=== PATIENT | female | born 1945 | race Caucasian/White ===

== ENCOUNTER 2022-07-13 07:26 | Day surgery (SDC) | payer MEDICARE, OTHER, SELFPAY ==
[2022-07-13] VITALS (24 sets, daily range): BP systolic 85–148; BP diastolic 54–88; PULSE 53–76; RESP 14–18; TEMP 35.7–36.9; O2SAT 83–99; BMI 36.6
[2022-07-13] MEDS: SODIUM CHLORIDE 0.9 % (FLUSH) 10 ML SYRINGE IVF (07:50)
[2022-07-13] MEDS: LACTATED RINGERS 1000 ML 1,000 ML 100 ML IV ×2 (07:52→09:40)
[2022-07-13] MEDS: OXYCODONE (CR) 10 MG TAB.ER.12H PO (08:15)
[2022-07-13] MEDS: ACETAMINOPHEN 500 MG TABLET 1000 MG PO ×2 (08:15→18:14)
[2022-07-13] MEDS: CELECOXIB 200 MG CAPSULE PO ×2 (08:15→21:33)
[2022-07-13] MEDS: MIDAZOLAM HCL 1 MG/ML inj IVP (08:25)
[2022-07-13] MEDS: fentaNYL 100 MCG/2 ML inj IVP (08:25)
--- NOTE | 2022-07-13 08:25 | SUR.PREOP ---
TIME?OUT:?0823 PT/Felton BARKER RN/Franca THAKKAR MDA?VERIFICATION?OF?SURGICAL?SITE,?PROCEDURE,?AND?CONSENT OBTAINED?PRIOR?TO?INVASIVE?PROCEDURE.
--- NOTE | 2022-07-13 08:31 | P.NB_ITS ---
Nerve Block Nerve Block Time Seen by Provider: 08:31 Date Seen: 07/13/22 Type of block requested by surgeon for post-operative analgesia: geniculars Side: right Time out performed: Yes Verification of patient name: Yes Verification of date of : Yes Site marking: site marked Name of person performing procedure: Zheng Continuous monitoring Was continuous monitoring of O2 sat, B/P, cardiac cath technician, recorded every 15 minutes?: Yes Procedure Checklist: sterile prep, needles and gloves Medications given in 5ml increments after negative aspiration: Ropivicaine %: 0.5 mL: 9 Needle gauge: 25 Patient tolerated procedure well: Yes Block Charges Block Charge (with Pro Fee): Genicular Nerve Block Use of Ultrasound Machine for Block: No
--- NOTE | 2022-07-13 08:31 | W.PM.NB ---
Nerve Block Nerve Block Time Seen by Provider: 08:31 Date Seen: 07/13/22 Type of block requested by surgeon for post-operative analgesia: adductor canal Side: right Time out performed: Yes Verification of patient name: Yes Verification of date of : Yes Site marking: site marked Name of person performing procedure: Zheng Continuous monitoring Was continuous monitoring of O2 sat, B/P, cardiac cath technician, recorded every 15 minutes?: Yes Procedure Checklist: sterile prep, needles and gloves Ultrasound guided. Images saved: Yes Medications given in 5ml increments after negative aspiration: Ropivicaine %: 0.5 mL: 20 Needle gauge: 20 Decadron (mg): 10 Precedex (mcg): 25 Patient tolerated procedure well: Yes Additional comments: Needle noted adjacent to nerve Block Charges Block Charge (with Pro Fee): Femoral Nerve Use of Ultrasound Machine for Block: Yes- US Guidance/pain block
[2022-07-13] MEDS: CEFAZOLIN 2 GM INJ IVP (09:10)
--- NOTE | 2022-07-13 10:01 | CRLHL7_ITS ---
For Patients: As a result of the Cures Act, medical imaging exams and procedure reports are released immediately into your electronic medical record. You may view this report before your referring provider. If you have questions, please contact your health care provider. INDICATION: Post operative right total knee arthroplasty TECHNIQUE: Knee radiograph 2 views right COMPARISON: None FINDINGS: Bone: No acute fractures or aggressive bone lesions are identified. Joint: The patient is status post a total knee arthroplasty with patellar resurfacing. No significant knee effusion is seen. Soft tissue: Anterior skin, subcutaneous gas and joint gas are present from recent surgery. No radiopaque foreign bodies are seen. IMPRESSION: 1. There is an unremarkable postoperative appearance of the knee arthroplasty. Dictated by: Adam Villeda MD @ 07/13/2022 14:20:40 (Electronically Signed)
--- NOTE | 2022-07-13 10:02 | PM.ORPRC ---
Procedure Note Date of procedure: 07/13/22 Procedure: SURGEON: Eddie Cowart MD VICE PRESIDENT FOR PHILANTHROPY: MELISSA Harper PREOPERATIVE DIAGNOSIS: Right knee osteoarthritis POSTOPERATIVE DIAGNOSIS: Right knee osteoarthritis NAME OF OPERATION: Right total knee arthroplasty ANESTHESIA: Spinal ESTIMATED BLOOD LOSS: 0 mL COMPLICATIONS: None SPECIMENS: None DRAINS: None PREOPERATIVE ANTIBIOTICS: Ancef 2 grams IMPLANTS: 1. J&J Attune # 4 posterior stabilized femur 2. # 5 fixed-bearing tibia 3. # 4 posterior stabilized, 5 mm fixed-bearing polyethylene 4. 35 patella INDICATIONS: The patient is a 77-year-old female with a longstanding history of severe, unrelenting right knee pain secondary to end-stage (grade IV) right knee osteoarthritis. Despite appropriate nonoperative management, including activity modification, anti-inflammatories, wehd-grl-bthspbx pain medication, bracing, physical therapy, and injections they continue to have pain and disability. Operative intervention was offered. The risks, benefits and expected outcomes were discussed in detail. These included but were not limited to: Infection, bleeding, injury to blood vessel or nerve, venous thromboembolism. All questions were answered to their satisfaction. Use of an assistant professor of dietetics was necessary throughout the case for patient positioning and safety, soft tissue retraction, and closure. PROCEDURE: Spinal anesthesia was administered. The patient was placed supine on the operating table. The assistant professor of dietetics made sure the patient was positioned appropriately. The lower extremity was prepped and draped in the usual sterile fashion. The limb was exsanguinated with the Tato bandage. The pneumatic tourniquet was inflated to 300 mmHg. A standard anterior incision was made with the knee in flexion. Subcutaneous dissection was sharply taken through fascial layer #1. Full-thickness medial and lateral flaps were elevated. The assistant professor of dietetics retracted the soft tissues and protected them throughout the case. A standard medial parapatellar approach was made. The patella was everted. The infrapatellar fat pad was preserved. The menisci and cruciate ligaments were sharply d?brided. Marginal osteophytes were d?brided with the rongeur. The drill was used to penetrate the femoral canal. The canal was aspirated and irrigated with pulse lavage. The intramedullary femoral guide was placed for a 5-degree valgus cut, removing 10 mm off the distal femur. The saw was used to make the cut. Whitesides line and the trans epicondylar axis were marked. The femoral sizing guide was pinned onto the distal femur. Three degrees of external rotation nicely parallels the transepicondylar axis. Pins were placed for posterior referencing. The four-in-one cutting guide was pinned onto the distal femur. The anterior, posterior, and chamfer cuts were made. The assistant professor of dietetics protected the collateral ligaments. The box cutting guide was pinned. The box cuts were made. The boxed trial was placed and was an excellent fit. Drill holes for the lugs were made. Attention was then turned to the proximal tibia. The extramedullary tibial guide was placed for a neutral varus/valgus cut with 5 degrees of posterior slope, removing 1 mm based off the medial tibial surface. The assistant professor of dietetics protected the collateral ligaments and the neurovascular bundle. The saw was used to make the cut. Trial components were placed. The knee was nicely balanced in both flexion and extension. Rotation of the tibial component was matched to the femur in full extension, matched to our tibial cutting pins, and marked with cautery. The trial components were removed. The tray was placed in appropriate rotation, parallel to our tibial cutting pins. It was pinned by the assistant professor of dietetics and the drill and the punch were used. The tray was removed. The punch was used again. We placed a bone plug in the femoral canal. Attention was then turned to the patella. [place] patellar thickness was 22 mm. The lobster claw resection guide was used with the 9.5 mm [place]. The saw was used to make the cut. Drill holes were made by the assistant professor of dietetics. The trial was placed and was an excellent fit. Cancellous surfaces were irrigated with pulse lavage and thoroughly dried by the assistant professor of dietetics. We cemented the tibial component, then the femoral component. A trial spacer was placed. The knee was brought into full extension. We then cemented the patellar component. Excessive cement was removed. The cement was allowed to harden. Any remaining excessive cement was removed with the osteotome. We impacted the 5 mm polyethylene onto the tibial tray. The knee was taken through a range of motion and was found to be nicely balanced in both flexion and extension. The patella tracks centrally. The assistant professor of dietetics did a three minute dilute Betadine solution soak. The assistant professor of dietetics irrigated the wound with 3 liters of normal saline via pulse lavage. The assistant professor of dietetics reapproximated the extensor mechanism with #1 Vicryl in an interrupted dglopl-se-eamcn fashion. The assistant professor of dietetics then ran the extensor mechanism with a #1 PDO Stratafix. The assistant professor of dietetics closed the subcutaneous tissues with a 3-0 Stratafix and the skin with a running 3-0 Stratafix in a subcuticular fashion. Glue was used to seal the skin. The assistant professor of dietetics placed a dry dressing, SHARDA stocking, and Polar Care. Sponge and needle counts were correct x2. The patient tolerated the procedure well. There were no apparent complications. They were carefully transferred to the hospital bed and taken to the postanesthesia care unit in satisfactory condition. PLAN: The patient will be mobilized with physical therapy. Aspirin will be used for DVT prophylaxis. They will be discharged to home once medically appropriate.
--- NOTE | 2022-07-13 10:51 | W.ANESCHARGE ---
Anesthesia Charges Start Date/Time Anesthesia Start Date: 07/13/22 Anesthesia Start Time: 08:53 Stop Date/Time Anesthesia Stop Date: 07/13/22 Anesthesia Stop Time: 10:48 Summary Emergency: No Extremes of Age: Over 72-CPT 86841
--- NOTE | 2022-07-13 10:55 | SUR.OPER ---
PATIENT QUESTIONS ANSWERED SATISFACTORILY PREOPERATIVELY.? PATIENT BROUGHT TO OR #3 PER CART AFTER BLOCK.? Patient positioned supine on OR #3 bed.?The perioperative?team supported arms bilaterally on arm boards.? Final approval of positioning by surgeon.?
--- NOTE | 2022-07-13 11:09 | SUR.PHASEI ---
xray here forap/lat right knee
--- NOTE | 2022-07-13 12:27 | P.IMCN_ITS ---
Date of Consult Patient: Geetha Patient Consult date: 07/13/22 Requesting Physician: Orthopedics Primary Care Provider: Valerie Rivera DO Consult Narrative Reason for consult: Medical management of comorbidities Narrative: Tiara Juarez (Jane) is a 77 year old female who presented to the hospital today for an elective R TKA with Dr. Cowart. Surgery went well without any complications. Patient has a history of osteopenia, osteoarthritis, GERD, essential hypertension, hyperlipidemia, GI disease requiring a low FODMAPS diet, mild anxiety that is well controlled on current medications. She has never had a DVT, but has had superficial thrombophlebitis. She has never had a blood transfusion. No concerns identified on her preoperative H&P, performed last week by her PCP, Dr. Rivera. Zina lives alone in [place], lives in [facility] in [place], [place]. She has 2 adult daughters (one will come and stay with her postoperatively). 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 Never smoker, no ETOH use. Has received 4 COVID vaccines. Review of Systems Status of ROS: Reports: 10 or more systems reviewed and unremarkable except as noted in History and below PFSH PFSH Medical History (Updated 07/13/22 @ 12:33 by Tamara Montero MD) Degenerative disc disease GERD (gastroesophageal reflux disease) Hyperlipidemia Hypertension Osteoarthritis Osteopenia Surgical History (Updated 07/13/22 @ 12:32 by Tamara Montero MD) History of arthroscopy of left shoulder History of section History of total left knee replacement Family History (Updated 06/22/22 @ 08:40 by Sunshine Mane RN) Father Myocardial infarction Mother Alzheimer disease Brother Anxiety Myocardial infarction Sister No problems noted. Social History Smoking Status: Never smoker Do you use any of these nicotine containing products: None How often do you have a drink containing alcohol: monthly or less How many standard drinks containing alcohol do you have on a typical day: 1 or 2 How often do you have six or more drinks on one occasion: Never AUDIT-C Alcohol total score: 1 Non-prescribed substance use: denies use Caffeine: Yes (occ pop, chocolate) Are you using contraception or practicing any form of control: No Meds Home Medications and Allergies Home Medications Medication Instructions Recorded Confirmed Type albuterol sulfate 90 mcg/actuation 2 inh inhalation Q6H PRN 07/13/22 07/13/22 History aerosol inhaler amoxicillin 500 mg capsule 2,000 mg PO PRN 07/13/22 07/13/22 History atorvastatin 10 mg tablet 10 mg PO HS 07/13/22 07/13/22 History biotin 800 mcg tablet 800 mcg PO DAILY 07/13/22 07/13/22 History buspirone 10 mg tablet 10 mg PO TID 07/13/22 07/13/22 History calcium carbonate 200 mg calcium 400 mg PO BID 07/13/22 07/13/22 History (500 mg) chewable tablet (Tums) cholecalciferol (vitamin D3) 10 20 mcg PO DAILY 07/13/22 07/13/22 History mcg (400 unit) capsule famotidine 20 mg tablet 20 mg PO BID 07/13/22 07/13/22 History fluticasone propionate 50 2 spray intranasal DAILY PRN 07/13/22 07/13/22 History mcg/actuation nasal spray,suspension (24 Hour Allergy Relief) glucosamine sulf dipot 2 cap PO DAILY 07/13/22 07/13/22 History chlr,msm,chond 550 mg-C 30 mg-cheri 1 mg capsule (Glucosamine Chondroitin) lorazepam 0.5 mg tablet (Ativan) 0.5 mg PO DAILY PRN 07/13/22 07/13/22 History losartan 50 mg tablet 50 mg PO DAILY 07/13/22 07/13/22 History metoprolol succinate 25 mg 25 mg PO DAILY 07/13/22 07/13/22 History tablet,extended release 24 hr (Toprol XL) minoxidil 5 % topical foam 1 ea topical HS 07/13/22 07/13/22 History (Daylogic Minoxidil) multivitamin (Daily Multi-Vitamin 1 tab PO DAILY 07/13/22 07/13/22 History tablet) pantoprazole 40 mg tablet,delayed 40 mg PO DAILY 07/13/22 07/13/22 History release sertraline 50 mg tablet 50 mg PO DAILY 07/13/22 07/13/22 History simethicone 80 mg chewable tablet 80 mg PO TID PRN 07/13/22 07/13/22 History (Gas Relief 80 (simethicone)) vitamin B complex (B 1 tab PO DAILY 07/13/22 07/13/22 History Complex-Vitamin B12 tablet) Allergies Allergy/AdvReac Type Severity Reaction Status Date / Time erythromycin base Allergy Mild Verified 07/13/22 08:06 spironolactone Allergy Mild Verified 07/13/22 08:06 Sulfa (Sulfonamide Allergy Mild Verified 07/13/22 08:06 Antibiotics) cephalexin Allergy Unknown Verified 07/13/22 08:07 lisinopril Allergy Unknown Verified 07/13/22 08:06 sulfamethoxazole Allergy Unknown Verified 07/13/22 08:06 [From Bactrim] trimethoprim [From Bactrim] Allergy Unknown Verified 07/13/22 08:06 Exam Narrative: Exam Narrative: GEN: Alert and oriented, sitting comfortably in bed and answering questions appropriately HEENT: Normal external ears, EOMIs bilaterally, no scleral icterus CV: RRR, No concerning murmurs, rubs, or gallops R: LCTA bilaterally without concerning wheezing, rales, or rhonchi Ext: wwp, no concerning edema Skin: No concerning skin lesions or rashes on exposed skin Neuro: Nonfocal Psych: Appropriate Const: Vital Signs, click to edit/add: Vital Signs - 24 hr 07/13/22 07:55 07/13/22 08:22 07/13/22 08:25 Temperature 98.1 F Pulse Rate 76 70 66 Pulse Rate [Pulse Oximeter] Respiratory Rate 16 16 14 Blood Pressure 148/88 H 136/62 121/75 Blood Pressure [Ri ght Arm] Pulse Oximetry 94 99 99 Oxygen Delivery Me thod Room Air Nasal Cannula Nasal Cannula Oxygen Flow Rate 2 2 07/13/22 08:45 07/13/22 08:30 07/13/22 10:43 Temperature 97.1 F L Pulse Rate 55 L 63 61 Pulse Rate [Pulse Oximeter] Respiratory Rate 14 14 16 Blood Pressure 97/57 L 120/70 85/55 L Blood Pressure [Ri ght Arm] Pulse Oximetry 97 99 94 Oxygen Delivery Me thod Nasal Cannula Nasal Cannula Room Air Oxygen Flow Rate 2 2 07/13/22 10:50 07/13/22 10:55 07/13/22 11:00 Temperature Pulse Rate 58 L 55 L 53 L Pulse Rate [Pulse Oximeter] Respiratory Rate 16 16 16 Blood Pressure 89/57 L 89/55 L 92/60 Blood Pressure [Ri ght Arm] Pulse Oximetry 94 94 93 Oxygen Delivery Me thod Nasal Cannula Nasal Cannula Nasal Cannula Oxygen Flow Rate 3 3 3 07/13/22 11:05 07/13/22 11:10 07/13/22 11:25 Temperature 97.1 F L 96.2 F L Pulse Rate 53 L 53 L 56 L Pulse Rate [Pulse Oximeter] Respiratory Rate 16 16 16 Blood Pressure 100/62 104/63 Blood Pressure [Ri ght Arm] 107/64 Pulse Oximetry 99 99 Oxygen Delivery Me thod Nasal Cannula Nasal Cannula Room Air Oxygen Flow Rate 3 3 0 07/13/22 11:30 Temperature 96.2 F L Pulse Rate Pulse Rate [Pulse Oximeter] 57 L Respiratory Rate 16 Blood Pressure Blood Pressure [Ri ght Arm] 105/55 L Pulse Oximetry 96 Oxygen Delivery Me thod Room Air Oxygen Flow Rate 0 Assessment and Plan Assessment and plan (1) Status post right knee replacement: Status: Acute (2) Osteoarthritis: Status: Acute Plan - continue home medications for above-mentioned comorbidities - pain control and prophylaxis per Orthopedic Surgery team
[2022-07-13] MEDS: HYDROmorphone 0.5 mg/0.5 ml inj IVP ×3 (12:34→17:15)
[2022-07-13] MEDS: OXYCODONE 5 MG TABLET PO ×3 (12:54→19:08)
--- NOTE | 2022-07-13 13:33 | W.ANESCHARGE ---
Anesthesia Charges Start Date/Time Anesthesia Start Date: 07/13/22 Anesthesia Start Time: 08:53 Stop Date/Time Anesthesia Stop Date: 07/13/22 Anesthesia Stop Time: 10:48 Summary Emergency: No Extremes of Age: Over 72-CPT 50530
[2022-07-13 13:54] LABS: Sodium* 141 mmol/L (135-149)
[2022-07-13] MEDS: BUSPIRONE 10 MG TABLET PO ×2 (14:10→19:15)
[2022-07-13] MEDS: CEFAZOLIN 2 GM in 0.9 % SODIUM CHLORIDE Mini-bag 100 ML IVPB (15:40)
--- NOTE | 2022-07-13 15:55 | PC.NURSE ---
Pt up to floor at 1125, poor pain control. oxy and dilaudid given at soonest available. up in chair with PT, this helped a bit. ICe to back of knee and cryo to front. surgical drsg CDI. 02 order obtained d/t sats dropping to 83% when sleeping. pt denied VINICIUS hx. 02 sats improve when awake. goal to keep above 88%. report given to LEWIS Atkins.
[2022-07-13] MEDS: ASPIRIN 81 MG TABLET EC PO (21:34)
[2022-07-13] MEDS: SENNOSIDES 1 TAB TABLET 2 TAB PO (21:34)
[2022-07-13] MEDS: ATORVASTATIN 10 MG TABLET PO (21:34)
[2022-07-13] MEDS: FAMOTIDINE 20 MG TABLET PO (21:34)
[2022-07-13] MEDS: SIMETHICONE 80 MG TAB.CHEW PO (21:38)
[2022-07-14] MEDS: ACETAMINOPHEN 500 MG TABLET 1000 MG PO ×3 (00:48→12:31)
[2022-07-14] MEDS: HYDROmorphone 0.5 mg/0.5 ml inj IVP (00:48)
[2022-07-14] MEDS: OXYCODONE 5 MG TABLET PO ×6 (01:29→12:32)
[2022-07-14] MEDS: CEFAZOLIN 2 GM in 0.9 % SODIUM CHLORIDE Mini-bag 100 ML IVPB ×2 (01:46→07:41)
[2022-07-14] MEDS: SIMETHICONE 80 MG TAB.CHEW PO (01:50)
--- NOTE | 2022-07-14 02:03 | PC.NURSE ---
Shift Note: Pt a/o and able to verbalize needs. Spo2 desatting to low 80's on RA, pt requiring 1-2 L/O2 via NC to maintain sats 88% or highter. VS otherwise WNL. Afebrile. Surgical dressing to right knee C,D,&I with cryocuff in place. Moves well with SBA. C/o 6/10 pain despite IV pain meds and oral Oxycodone, ice, and repositioning. Pt visibly having difficulty finding a comfortable position in chair and in bed. Frequent repositioning helpful. Simethicone PRN for belching and gas.
[2022-07-14 03:27] VITALS: BP 117/49; PULSE 66; RESP 16; TEMP 36.4; O2SAT 97
[2022-07-14] MEDS: LORazepam 0.5 MG TABLET PO (06:19)
[2022-07-14 06:29] LABS: Basophils Absolute Auto 0.01 K/uL (0.00-0.30); Basophils Percent Auto 0.1 % (0.0-3.0); Hematocrit 33.9 % (33.0-51.0); Hemoglobin* 11.1 gm/dL (12.0-16.0); Immature Granulocytes Abs Auto 0.01 K/uL (0.00-0.30); Lymphocytes Percent Auto 7.3 % (20-44); Mean Corpuscular HGB Conc 33 gm/dL (32-36); Mean Corpuscular Hemoglobin 30 pg (26-34); Mean Corpuscular Volume 91 fL (80-100); Monocytes Percent Auto 9.1 % (0.0-11.0); Neutrophils Percent Auto 83.4 % (42.0-72.0); Platelet Count* 183 K/uL (140-440); Red Blood Count 3.74 m/uL (4.00-5.20); White Blood Count* 10.26 K/uL (4.50-11.00)
[2022-07-14 06:44] LABS: INR 0.99 (0.91-1.10); Prothrombin Time 13.5 Seconds
[2022-07-14 06:46] LABS: Potassium* 4.3 mmol/L (3.6-5.1)
[2022-07-14 06:48] LABS: Creatinine* 0.9 mg/dL (0.5-1.5); Est. Creatinine Clearance* 38.44; Estimated Glomerular Filt Rate 67 ml/min
[2022-07-14 06:49] LABS: Blood Urea Nitrogen* 27 mg/dL (7-30)
[2022-07-14 07:00] VITALS: BP 139/74; PULSE 60; RESP 12; TEMP 36.7; O2SAT 97
--- NOTE | 2022-07-14 07:09 | PC.NURSE ---
Shift Note 03-07: Pt pleasant and cooperative, VSS, afebrile, up with SBA. Pt anxious for discharge and pain control. See eMAR for medication administration.
--- NOTE | 2022-07-14 08:34 | PM.ORPN ---
Subjective Subjective Time Seen by Provider: 07:15 Date Seen: 07/14/22 Principal diagnosis: Status post right total knee arthroplasty Interval history: Tiara is having posterior knee pain this morning. She did not get much sleep last night. Upon discharge her daughter and granddaughter will be assisting her for 2 weeks. Ortho Exam Narrative Exam Narrative: Alert and oriented x3. Patient is in no acute distress. Converses without labored breathing. Hearing is grossly intact. Ambulates with a walker. Examination of the right knee shows ecchymosis is present. Soft tissue edema is present and is mild. Mild effusion. Bilateral calves are soft and nontender. CMS intact right lower extremity Const Vital Signs, click to edit/add: Vital Signs - 24 hr 07/13/22 08:45 07/13/22 10:43 07/13/22 10:50 Temperature 97.1 F L Pulse Rate 55 L 61 58 L Pulse Rate [Pulse Oximeter] Respiratory Rate 14 16 16 Blood Pressure 97/57 L 85/55 L 89/57 L Blood Pressure [Right Arm] Pulse Oximetry 97 94 94 Oxygen Delivery Method Nasal Cannula Room Air Nasal Cannula Oxygen Flow Rate 2 3 07/13/22 10:55 07/13/22 11:00 07/13/22 11:05 Temperature Pulse Rate 55 L 53 L 53 L Pulse Rate [Pulse Oximeter] Respiratory Rate 16 16 16 Blood Pressure 89/55 L 92/60 100/62 Blood Pressure [Right Arm] Pulse Oximetry 94 93 99 Oxygen Delivery Method Nasal Cannula Nasal Cannula Nasal Cannula Oxygen Flow Rate 3 3 3 07/13/22 11:10 07/13/22 11:25 07/13/22 11:30 Temperature 97.1 F L 96.2 F L 96.2 F L Pulse Rate 53 L 56 L Pulse Rate [Pulse Oximeter] 57 L Respiratory Rate 16 16 16 Blood Pressure 104/63 Blood Pressure [Right Arm] 107/64 105/55 L Pulse Oximetry 99 96 Oxygen Delivery Method Nasal Cannula Room Air Room Air Oxygen Flow Rate 3 0 0 07/13/22 15:00 07/13/22 11:45 07/13/22 12:00 Temperature 96.2 F L 96.8 F L Pulse Rate Pulse Rate [Pulse Oximeter] 57 L 53 L Respiratory Rate 16 16 16 Blood Pressure Blood Pressure [Right Arm] 110/68 110/64 Pulse Oximetry 93 90 Oxygen Delivery Method Room Air Room Air Oxygen Flow Rate 0 0 07/13/22 12:15 07/13/22 12:30 07/13/22 13:00 Temperature 96.8 F L 96.8 F L 96.8 F L Pulse Rate Pulse Rate [Pulse Oximeter] 61 61 53 L Respiratory Rate 16 16 16 Blood Pressure Blood Pressure [Right Arm] 120/59 L 112/61 117/72 Pulse Oximetry 96 96 97 Oxygen Delivery Method Room Air Room Air Room Air Oxygen Flow Rate 0 0 0 07/13/22 14:00 07/13/22 15:00 07/13/22 16:00 Temperature 96.8 F L 98.4 F Pulse Rate Pulse Rate [Pulse Oximeter] 58 L 60 71 Respiratory Rate 16 16 16 Blood Pressure Blood Pressure [Right Arm] 112/57 L 134/71 120/70 Pulse Oximetry 83 L 95 95 Oxygen Delivery Method Nasal Cannula Nasal Cannula Nasal Cannula Oxygen Flow Rate 2 0 0 07/13/22 17:00 07/13/22 19:00 07/13/22 23:00 Temperature 98.1 F 97.7 F Pulse Rate Pulse Rate [Pulse Oximeter] 68 62 62 Respiratory Rate 16 18 18 Blood Pressure Blood Pressure [Right Arm] 135/54 L 124/72 Pulse Oximetry 96 94 Oxygen Delivery Method Nasal Cannula Nasal Cannula Oxygen Flow Rate 0 2 07/13/22 23:00 07/14/22 03:27 Temperature 98.4 F 97.6 F Pulse Rate Pulse Rate [Pulse Oximeter] 65 66 Respiratory Rate 18 16 Blood Pressure Blood Pressure [Right Arm] 135/71 117/49 L Pulse Oximetry 98 97 Oxygen Delivery Method Nasal Cannula Room Air Oxygen Flow Rate 1 Documenting provider has reviewed patient's vital signs: yes Assessment and Plan Assessment and plan (1) Status post right knee replacement: Problem details: 07/13/2022 Status: Acute Assessment and Plan: Plan for discharge is today to home if they meet discharge criteria, likely today. DVT prophylaxis includes aspirin 81 mg twice daily x1 month, Gagan stockings x1 month may remove for 1 hr per day, frequent ambulation Remove dressing in 1 week. Observe wound and phone Orthopedics with any questions or concerns Return to clinic in 1 week for a wound check Return to clinic in [address] Cowart Minimize narcotic use. Wean off and discontinue soon as possible. Activities as tolerated. No strenuous activity. Outpatient physical therapy as scheduled. Ice and elevate the operative extremity. No restriction on ice. (2) Osteoarthritis: Status: Acute
[2022-07-14] MEDS: LOSARTAN POTASSIUM 50 MG TABLET PO (09:48)
[2022-07-14] MEDS: SERTRALINE 50 MG TABLET PO (09:48)
[2022-07-14] MEDS: BUSPIRONE 10 MG TABLET PO (09:49)
[2022-07-14] MEDS: OMEPRAZOLE 20 MG CAPSULE DR 40 MG PO (09:49)
[2022-07-14] MEDS: ASPIRIN 81 MG TABLET EC PO (09:49)
[2022-07-14] MEDS: CELECOXIB 200 MG CAPSULE PO (09:50)
[2022-07-14] MEDS: METOPROLOL SUCCINATE (XL) 25 MG TAB PO (09:50)
[2022-07-14] MEDS: SENNOSIDES 1 TAB TABLET 2 TAB PO (09:50)
[2022-07-14] MEDS: FAMOTIDINE 20 MG TABLET PO (09:50)
--- NOTE | 2022-07-14 09:53 | P.DS_ITS ---
DS: Providers Provider Time Seen by Provider: 08:44 Date Seen: 07/14/22 Primary care physician: Valerie Rivera DO Consults: 07/13/22 12:03 Consult to Occupational Therapy [CONS] Routine Comment: Reason(s) for OT Consult:: ADLs Prior to Discharge Any Restrictions?:: See Comment Comment: See nursing activity order for any restrictions. Consult to Physical Therapy [CONS] Routine Comment: Ambulate in the addison today. Reason(s) for PT Consult:: TKA TX Protocol POD#0 Any Restrictions?:: See Comment Comment: See nursing activity order for any restrictions. Consult to Physician [CONS] Routine Comment: Consulting Provider: Hospitalists Has provider been notified: No Consult to Icer Machine Operator [CONS] Routine Comment: Reason for Consult:: Discharge Planning Needs Attending Physician on discharge: Eddie Cowart MD Date of Discharge: 07/14/22 DS: Diagnosis Discharge Diagnosis (1) Status post right knee replacement: Status: Acute Problem details: 07/13/2022 (2) Osteoarthritis: Status: Acute (3) Hyperlipidemia: Status: Chronic (4) Hypertension: Status: Chronic DS: Summary Hospital Course Hospital Course: This is a 77-year-old female with history of hyperlipidemia and hypertension who underwent an elective right total knee arthroplasty. She did well postoperatively and overall had an unremarkable perioperative course. She is discharged home after therapies today in stable condition. Time Spent with Patient Time attestation: Total time spent providing and/or coordinating discharge services: Exam Narrative: Exam Narrative: General: No acute distress. Awake, alert, oriented x3. No pallor. No jaundice. Oropharynx: Clear. Mucous membranes moist. Cardiovascular: Regular rate and rhythm. No murmurs, gallops, or rubs. Respiratory: Clear to auscultation bilaterally. No wheezes or crackles. Abdomen: Bowel sounds present. Soft, nondistended, nontender. Extremities: Right knee bandage is clean, dry, and intact. No pedal edema. Const: Vital Signs, click to edit/add: Vital Signs - 24 hr 07/13/22 10:43 07/13/22 10:50 07/13/22 10:55 Temperature 97.1 F L Pulse Rate 61 58 L 55 L Pulse Rate [Pulse Oximeter] Respiratory Rate 16 16 16 Blood Pressure 85/55 L 89/57 L 89/55 L Blood Pressure [Ri ght Arm] Pulse Oximetry 94 94 94 Oxygen Delivery Me thod Room Air Nasal Cannula Nasal Cannula Oxygen Flow Rate 3 3 07/13/22 11:00 07/13/22 11:05 07/13/22 11:10 Temperature 97.1 F L Pulse Rate 53 L 53 L 53 L Pulse Rate [Pulse Oximeter] Respiratory Rate 16 16 16 Blood Pressure 92/60 100/62 104/63 Blood Pressure [Ri ght Arm] Pulse Oximetry 93 99 99 Oxygen Delivery Me thod Nasal Cannula Nasal Cannula Nasal Cannula Oxygen Flow Rate 3 3 3 07/13/22 11:25 07/13/22 11:30 07/13/22 15:00 Temperature 96.2 F L 96.2 F L Pulse Rate 56 L Pulse Rate [Pulse Oximeter] 57 L Respiratory Rate 16 16 16 Blood Pressure [facility] 107/64 105/55 L Pulse Oximetry 96 Oxygen Delivery Me thod Room Air Room Air Oxygen Flow Rate 0 0 07/13/22 11:45 07/13/22 12:00 07/13/22 12:15 Temperature 96.2 F L 96.8 F L 96.8 F L Pulse Rate Pulse Rate [Pulse Oximeter] 57 L 53 L 61 Respiratory Rate 16 16 16 Blood Pressure Blood Pressure [Ri ght Arm] 110/68 110/64 120/59 L Pulse Oximetry 93 90 96 Oxygen Delivery Me thod Room Air Room Air Room Air Oxygen Flow Rate 0 0 0 07/13/22 12:30 07/13/22 13:00 07/13/22 14:00 Temperature 96.8 F L 96.8 F L Pulse Rate Pulse Rate [Pulse Oximeter] 61 53 L 58 L Respiratory Rate 16 16 16 Blood Pressure Blood Pressure [Ri ght Arm] 112/61 117/72 112/57 L Pulse Oximetry 96 97 83 L Oxygen Delivery Me thod Room Air Room Air Nasal Cannula Oxygen Flow Rate 0 0 2 07/13/22 15:00 07/13/22 16:00 07/13/22 17:00 Temperature 96.8 F L 98.4 F 98.1 F Pulse Rate Pulse Rate [Pulse Oximeter] 60 71 68 Respiratory Rate 16 16 16 Blood Pressure Blood Pressure [Ri ght Arm] 134/71 120/70 135/54 L Pulse Oximetry 95 95 96 Oxygen Delivery Me thod Nasal Cannula Nasal Cannula Nasal Cannula Oxygen Flow Rate 0 0 0 07/13/22 19:00 07/13/22 23:00 07/13/22 23:00 Temperature 97.7 F 98.4 F Pulse Rate Pulse Rate [Pulse Oximeter] 62 62 65 Respiratory Rate 18 18 18 Blood Pressure Blood Pressure [Ri t Arm] 124/72 135/71 Pulse Oximetry 94 98 Oxygen Delivery Me thod Nasal Cannula Nasal Cannula Oxygen Flow Rate 2 1 07/14/22 03:27 Temperature 97.6 F Pulse Rate Pulse Rate [Pulse Oximeter] 66 Respiratory Rate 16 Blood Pressure [facility] 117/49 L Pulse Oximetry 97 Oxygen Delivery Me thod Room Air Oxygen Flow Rate DS: Data Data Completed and Pending Completed studies during hospitalization: Ordering Physician: Eddie Cowart M.D. Date of Service: 07/13/22 Procedure(s): XR knee RT 2V Accession Number(s): [id number] cc: Valerie Rivera DO; Eddie Cowart M.D.~ For Patients: As a result of the Cures Act, medical imaging exams and procedure reports are released immediately into your electronic medical record. You may view this report before your referring provider. If you have questions, please contact your health care provider. INDICATION: Post operative right total knee arthroplasty TECHNIQUE: Knee radiograph 2 views right COMPARISON: None FINDINGS: Bone: No acute fractures or aggressive bone lesions are identified. Joint: The patient is status post a total knee arthroplasty with patellar resurfacing. No significant knee effusion is seen. Soft tissue: Anterior skin, subcutaneous gas and joint gas are present from recent surgery. No radiopaque foreign bodies are seen. IMPRESSION: 1. There is an unremarkable postoperative appearance of the knee arthroplasty. Dictated by: Adam Villeda MD @ 07/13/2022 14:20:40 (Electronically Signed) Labs on day of discharge: Labs from last 24 hours 07/14/22 07/14/22 07/14/22 05:52 05:52 05:52 WBC 10.26 RBC 3.74 L Hgb 11.1 L Hct 33.9 MCV 91 MCH 30 MCHC 33 RDW Coeff of Libra 13.0 Plt Count 183 Neut % (Auto) 83.4 H Lymph % (Auto) 7.3 L [place] % (Auto) 9.1 Eos % (Auto) 0.0 Baso % (Auto) 0.1 Neut # (Auto) 8.60 H Lymph # (Auto) 0.70 L [place] # (Auto) 0.90 Eos # (Auto) 0.00 Baso # (Auto) 0.01 Abs Immat Gran (auto) 0.01 INR 0.99 Sodium Potassium 4.3 BUN 27 Creatinine 0.9 Estimated Creat Clear 38.44 Estimated GFR 67 07/13/22 13:31 WBC RBC Hgb Hct MCV MCH MCHC RDW Coeff of Libra Plt Count Neut % (Auto) Lymph % (Auto) [place] % (Auto) Eos % (Auto) Baso % (Auto) Neut # (Auto) Lymph # (Auto) [place] # (Auto) Eos # (Auto) Baso # (Auto) Abs Immat Gran (auto) INR Sodium 141 Potassium BUN Creatinine Estimated Creat Clear Estimated GFR Discharge Plan Discharge Disposition: Home, Self-Care Discharging Surgeon: Eddie Cowart Follow-Up Appointment: 1 Week Prescriptions: New acetaminophen 500 mg Tablet 500 - 1,000 mg PO Q6H MDD 4000 mg per day PRNQty: 100 0RF aspirin 81 mg Tablet,Delayed Release (Dr/Ec) 81 mg PO BID 30 Days Qty: 60 0RF Rx Instructions: For DVT prophylaxis oxycodone 5 mg Tablet 2.5 - 5 mg PO Q4-6H MDD 6 tabs per day PRN (Reason: Pain) Qty: 42 0RF sennosides [Senna Lax] 8.6 mg Tablet 2 tab PO BID PRNQty: 100 0RF Continued metoprolol succinate [Toprol XL] 25 mg tablet extended release 24 hr 25 mg PO DAILY pantoprazole 40 mg tablet,delayed release (DR/EC) 40 mg PO DAILY buspirone 10 mg tablet 10 mg PO TID famotidine 20 mg tablet 20 mg PO BID atorvastatin 10 mg tablet 10 mg PO HS losartan 50 mg tablet 50 mg PO DAILY sertraline 50 mg tablet 50 mg PO DAILY amoxicillin 500 mg capsule 2,000 mg PO PRN Label Comments: TAKE 4 CAPSULES BY MOUTH 1 HOUR BEFORE APPOINTMENT albuterol sulfate 90 mcg/actuation HFA aerosol inhaler 2 inh inhalation Q6H PRN vitamin B complex [B Complex-Vitamin B12] Tablet 1 tab PO DAILY biotin 800 mcg tablet 800 mcg PO DAILY calcium carbonate [Tums] 200 mg calcium (500 mg) tablet,chewable 400 mg PO BID cholecalciferol (vitamin D3) 10 mcg (400 unit) capsule 20 mcg PO DAILY fluticasone propionate [24 Hour Allergy Relief] 50 mcg/actuation spray,suspension 2 spray intranasal DAILY PRN Rx Instructions: administer into each nostril Glucosamine Chondroitin 550-30-1 mg capsule 2 cap PO DAILY lorazepam [Ativan] 0.5 mg tablet 0.5 mg PO DAILY PRN multivitamin [Daily Multi-Vitamin] Tablet 1 tab PO DAILY minoxidil [Daylogic Minoxidil] 5 % foam 1 ea topical HS simethicone [Gas Relief 80 (simethicone)] 80 mg tablet,chewable 80 mg PO TID PRN Activity Level: Activity as Tolerated and No strenuous activity Activity Detail: Keep dressing on for 1 week. Dressing is waterproof. May shower. Surgical glue covers the wound. Attend outpatient physical therapy if scheduled. Ice and elevate operative extremity without restriction. Wear compression stockings for 1 month post surgery. May remove for 1 hour per day. Ambulate every hour throughout the day. Do not drive while taking narcotic pain medication. Do not drink alcohol while taking narcotic pain medication. May drive when safe to do so and have full function of the extremities, this may take 6 weeks or more. Notify Orthopedics with any questions or concerns. ([phone]) Discharge Diet: Regular Forms: Work/Release Restrictions Follow-up: Valerie Rivera DO [Primary Care Provider] - Discharge Orders: Discharge Order (Routine); Ordered 07/14/22 Ordered By: Kadie Baires
[2022-07-14] MEDS: polyethylene glycoL 3350 17 GM PACK PO (10:17)
[2022-07-14 11:00] VITALS: BP 128/68; PULSE 56; RESP 16; TEMP 36.6; O2SAT 98
--- NOTE | 2022-07-14 13:22 | PC.NURSE ---
Discharge: Patient pleasant and cooperative. Patient vitally stable, lungs clear, BS WNL, IV removed catheter intact. Patient has rated pain at most 3/10, Scheduled tylenol given and 10mg of oxy given x3. Patient tolerating regular diet and urinating. Patient right knee wound dressing C/D/I. Patient signed discharge form and belongings sheet. Patient had no further questions after discharge education. Patient left the floor by wheelchair at [id number] with belongings.
[2022-07-14 22:07] LABS: Slide Review Reflex No
== END 2022-07-14 12:59 | disposition home or self-care (01) ==
LOC: OR 07:27 → MEDSURG 07:51
PROVIDERS: PCP Family Medicine; Visit Provider Orthopaedic Surgery
PROC: (CPT 27447; principal; 2022-07-13 09:15)
DX: M17.11 Unilateral primary osteoarthritis, right knee (principal); E78.5 Hyperlipidemia, unspecified; I10 Essential (primary) hypertension; K21.9 Gastro-esophageal reflux disease without esophagitis; M85.80 Other specified disorders of bone density and structure, unspecified site; F41.9 Anxiety disorder, unspecified; Z86.72 Personal history of thrombophlebitis
CPT/HCPCS: 27447; 01402; 36415; 64447; 64454; 73560; 76942; 82565; 84132; 84295; 84520; 85025; 85610; 97110; 97116; 97161; 97165; 97530; 99100; A9270; C1776; J0690; J1100; J1170; J2250; J2370; J2405; J2704; J2795; J3010; J7120

== ENCOUNTER 2024-03-11 05:12 | Emergency (ER) | payer MEDICARE, SELFPAY ==
--- NOTE | 2024-03-11 05:18 | CRLHL7_ITS ---
For Patients: As a result of the Century Cures Act, medical imaging exams and procedure reports are released immediately into your electronic medical record. You may view this report before your referring provider. If you have questions, please contact your health care provider. INDICATION: Injury with pain COMPARISON: There are no prior studies for comparison TECHNIQUE: : CT examination of the chest was performed without contrast.Thin axial sections were obtained from the thoracic inlet through the lung bases. Please note that all CT scans at this facility use dose modulation, iterative reconstruction, and/or weight-based dosing when appropriate to reduce radiation dose to as low as reasonably achievable. FINDINGS: : HEART and MEDIASTINUM: The heart size is normal. There is no mediastinal or hilar adenopathy or mass. There is no pericardial effusion.Atherosclerotic vascular calcifications noted. LUNGS and PLEURAL SPACES: The lungs show no focal consolidation or mass. The airways appear normal.There is no pleural effusion, pneumothorax or pleural based mass. A few linear opacities are probably due to atelectasis VISUALIZED UPPER ABDOMEN: Hepatic cyst. Otherwise, the limited visualized upper abdominal structures appear normal. Atherosclerotic vascular calcifications noted OSSEOUS STRUCTURES: Questionable nondisplaced right lateral 4th rib fracture. This is seen on series 3, images 43, 44 and 45. No other osseous injury suggested TUBES and LINES: None. IMPRESSION: 1. Questionable nondisplaced right lateral 4th rib fracture. No additional fractures identified. 2. No injury identified involving the mediastinum, lungs or pleural spaces. Minimal basilar opacities probably atelectasis. Please note that all CT scans at this facility use dose modulation, iterative reconstruction, and/or weight-based dosing when appropriate to reduce radiation dose to as low as reasonably achievable. Dictated by aMrc Morton MD @ 03/11/2024 6:23:19 AM (Electronically Signed)
[2024-03-11 05:21] VITALS: BP 208/111; PULSE 83; RESP 16; TEMP 36.4; O2SAT 95; BMI 38.8
--- NOTE | 2024-03-11 05:32 | CRLHL7_ITS ---
For Patients: As a result of the Cures Act, medical imaging exams and procedure reports are released immediately into your electronic medical record. You may view this report before your referring provider. If you have questions, please contact your health care provider. Indication: Right knee pain Technique: A total of two views of the right knee were acquired. Comparison: None Findings: There is no dislocation. There is a right knee arthroplasty. Atherosclerotic vascular calcifications are noted. There is no visible acute fracture, dislocation or destructive process. No abnormal lucency about the implants. Soft tissue swelling. Probable joint effusion Impression: No acute fracture, dislocation or destructive process. Soft tissue swelling. Probable joint effusion. Right knee arthroplasty. Alignment is normal and there is no abnormal lucency about the implants. Dictated by Marc Morton MD @ 03/11/2024 6:24:55 AM (Electronically Signed)
--- NOTE | 2024-03-11 06:22 | ED.FALL ---
HPI - Fall General Chief Complaint: Fall/Minor Trauma Stated Complaint: upper right chest pain Time Seen by Provider: 03/11/24 05:16 History of Present Illness HPI Narrative: Patient is a 78-year-old woman who fell caring bag of cat litter yesterday. She landed on the cat litter on the right upper portion of her chest. She overnight has had increasing pain with no radiculopathy. The pain is localized to the mid clavicular line on the right. She has had no fevers no chills no night sweats she has otherwise been feeling fine with the exception of minimal right-sided knee pain. She is unable to keep up with the pain at home concerned that something is significantly wrong so as result she presents to the emergency room. No head or neck pain no head or neck trauma. No other significant symptoms. Related Data Home Medications ?Medication ?Instructions ?Recorded ?Confirmed albuterol sulfate 90 mcg/actuation 2 inh inhalation Q6H PRN 07/13/22 01/30/24 aerosol inhaler atorvastatin 10 mg tablet 10 mg PO HS 07/13/22 01/30/24 biotin 800 mcg tablet 800 mcg PO DAILY 07/13/22 01/30/24 buspirone 10 mg tablet 10 mg PO TID 07/13/22 01/30/24 calcium carbonate (Tums) 400 mg PO BID 07/13/22 01/30/24 cholecalciferol (vitamin D3) 10 20 mcg PO DAILY 07/13/22 01/30/24 mcg (400 unit) capsule famotidine 20 mg tablet 20 mg PO BID 07/13/22 01/30/24 fluticasone propionate 50 2 spray intranasal DAILY PRN 07/13/22 01/30/24 mcg/actuation nasal spray,suspension (24 Hour Allergy Relief) lorazepam 0.5 mg tablet (Ativan) 0.5 mg PO DAILY PRN 07/13/22 01/30/24 losartan 50 mg tablet 50 mg PO DAILY 07/13/22 01/30/24 metoprolol succinate 25 mg 25 mg PO DAILY 07/13/22 01/30/24 tablet,extended release 24 hr (Toprol XL) minoxidil 5 % topical foam 1 ea topical HS 07/13/22 01/30/24 (Daylogic Minoxidil) multivitamin (Daily Multi-Vitamin 1 tab PO DAILY 07/13/22 01/30/24 tablet) pantoprazole 40 mg tablet,delayed 40 mg PO DAILY 07/13/22 01/30/24 release sertraline 50 mg tablet 50 mg PO DAILY 07/13/22 01/30/24 simethicone 80 mg chewable tablet 80 mg PO TID PRN 07/13/22 01/30/24 (Gas Relief 80 (simethicone)) vitamin B complex (B 1 tab PO DAILY 07/13/22 01/30/24 Complex-Vitamin B12 tablet) Allergies Allergy/AdvReac Type Severity Reaction Status Date / Time erythromycin base Allergy Mild Verified 01/30/24 11:25 spironolactone Allergy Mild Verified 01/30/24 11:25 Sulfa (Sulfonamide Allergy Mild Verified 01/30/24 11:25 Antibiotics) cephalexin Allergy Unknown Verified 01/30/24 11:25 lisinopril Allergy Unknown Verified 01/30/24 11:25 sulfamethoxazole Allergy Unknown Verified 01/30/24 11:25 [From Bactrim] trimethoprim [From Bactrim] Allergy Unknown Verified 01/30/24 11:25 Review of Systems Status of ROS: Reports: 10 or more systems reviewed and unremarkable except as noted in History and below [facility] Medical History Cat bite of face ?S01.85XA - Open bite of other part of head, initial encounter (ICD-10) ?W55.01XA - Bitten by cat, initial encounter (ICD-10) Health care directive on file ?Z78.9 - Other specified health status (ICD-10) Osteoarthritis ?M19.90 - Unspecified osteoarthritis, unspecified site (ICD-10) Hyperlipidemia ?E78.5 - Hyperlipidemia, unspecified (ICD-10) Degenerative disc disease Osteopenia ?M85.80 - Other specified disorders of bone density and structure, unspecified site (ICD-10) GERD (gastroesophageal reflux disease) ?K21.9 - Gastro-esophageal reflux disease without esophagitis (ICD-10) Hypertension ?I10 - Essential (primary) hypertension (ICD-10) Surgical History H/O hand surgery (12/06/06) ?Z98.890 - Other specified postprocedural states (ICD-10) History of section ?Z98.891 - History of uterine scar from previous surgery (ICD-10) History of arthroscopy of left shoulder (07/22/06) ?Z98.890 - Other specified postprocedural states (ICD-10) History of total left knee replacement ?Z96.652 - Presence of left artificial knee joint (ICD-10) Family History Father Myocardial infarction Mother Alzheimers disease Brother Anxiety Myocardial infarction Sister No problems noted. Social History Smoking Status: Never smoker Do you use any of these nicotine containing products: None How often do you have a drink containing alcohol: monthly or less How many standard drinks containing alcohol do you have on a typical day: 1 or 2 How often do you have six or more drinks on one occasion: Never AUDIT-C Alcohol total score: 1 Non-prescribed substance use: denies use Caffeine: Yes (occ pop, chocolate) Are you using contraception or practicing any form of control: No Exam Narrative: Exam Narrative: EXAM GENERAL: Patient appears comfortable and well. EYES: No scleral icterus. ENT: Tympanic membranes and oropharynx normal. THYROID: no thyroid nodules or thyromegaly. LYMPH: No supraclavicular or cervical lymphadenopathy. SKIN: Ecchymoses noted over the right anterior chest in the midclavicular line. EXT: No dependent lower extremity pedal edema. HEART: Regular rate and rhythm with no murmurs, rubs, or gallops. LUNGS: Clear to auscultation bilaterally with no crackles or wheezes. ABD: Soft, non tender, non distended. PSYCH: Good eye contact, speech is not pressured. Const: Vital Signs, click to edit/add: Vital Signs - 24 hr 03/11/24 05:21 Temperature 97.6 F Pulse Rate [Pulse Oximeter] 83 Respiratory Rate 16 Blood Pressure [Ri ght Upper Arm] 208/111 H Pulse Oximetry 95 Oxygen Delivery Me thod Room Air Course Course ED Course: Patient seen and examined. X-ray of the right knee and CT of the chest without contrast ordered. Vital Signs Vital signs: Initial Vital Signs Temperature 97.6 F 03/11/24 05:21 Temperature Source Temporal Artery Scan 03/11/24 05:21 Pulse Rate 83 03/11/24 05:21 Respiratory Rate 16 03/11/24 05:21 Blood Pressure 208/111 H 03/11/24 05:21 Blood Pressure Mean 143 H 03/11/24 05:21 Blood Pressure Position Sitting 03/11/24 05:21 Pulse Oximetry 95 03/11/24 05:21 Oxygen Delivery Method Room Air 03/11/24 05:21 Vital Signs Temperature 97.6 F 03/11/24 05:21 Pulse Rate 83 03/11/24 05:21 Respiratory Rate 16 03/11/24 05:21 Blood Pressure 208/111 H 03/11/24 05:21 Pulse Oximetry 95 03/11/24 05:21 Oxygen Delivery Method Room Air 03/11/24 05:21 Temperature 97.6 F 03/11/24 05:21 Pulse Rate 83 03/11/24 05:21 Respiratory Rate 16 03/11/24 05:21 Blood Pressure 208/111 H 03/11/24 05:21 Pulse Oximetry 95 03/11/24 05:21 Oxygen Delivery Method Room Air 03/11/24 05:21 MDM - Fall MDM Narrative Medical decision making narrative: Patient is a 78-year-old woman who presents with a right anterior chest wall pain after falling on cat litter last night. She also has pain in her right knee. X-ray of the knee is unremarkable CT of the chest shows questionable 4th rib fracture. This is nondisplaced syncope treated with Tylenol and Motrin. No other significant injuries are noted. Differential diagnosis includes but not limited to rib fracture rib contusion pneumothorax. Discharge Plan Discharge Clinical Impression: Fracture of rib Patient Disposition: Home, Self-Care Condition: Stable Instructions: Rib Fracture (ED) Additional Instructions: Tylenol Motrin Ice Rest Follow-up with your doctor as needed. Activity Level: No Restrictions Discharge Diet: Regular Prescriptions: No Action metoprolol succinate [Toprol XL] 25 mg tablet extended release 24 hr 25 mg PO DAILY pantoprazole 40 mg tablet,delayed release (DR/EC) 40 mg PO DAILY buspirone 10 mg tablet 10 mg PO TID famotidine 20 mg tablet 20 mg PO BID atorvastatin 10 mg tablet 10 mg PO HS losartan 50 mg tablet 50 mg PO DAILY sertraline 50 mg tablet 50 mg PO DAILY albuterol sulfate 90 mcg/actuation HFA aerosol inhaler 2 inh inhalation Q6H PRN vitamin B complex [B Complex-Vitamin B12] Tablet 1 tab PO DAILY biotin 800 mcg tablet 800 mcg PO DAILY calcium carbonate [Tums] 200 mg calcium (500 mg) tablet,chewable 400 mg PO BID cholecalciferol (vitamin D3) 10 mcg (400 unit) capsule 20 mcg PO DAILY fluticasone propionate [24 Hour Allergy Relief] 50 mcg/actuation spray,suspension 2 spray intranasal DAILY PRN Rx Instructions: administer into each nostril lorazepam [Ativan] 0.5 mg tablet 0.5 mg PO DAILY PRN multivitamin [Daily Multi-Vitamin] Tablet 1 tab PO DAILY minoxidil [Daylogic Minoxidil] 5 % foam 1 ea topical HS simethicone [Gas Relief 80 (simethicone)] 80 mg tablet,chewable 80 mg PO TID PRN Follow Up/Referrals: Valerie Rivera DO [Primary Care Provider] - Stand Alone Forms: [facility] Info Instructions
--- OUTSIDE RECORDS SUMMARY | 2024-03-11 06:39 | XMS_ITS | Clinical Summary ---
Author Organization [facility] Address [place], [place] [address] Care Team Providers Care Training Specialist Name Role Phone Valerie Rivera DO Primary Care Provider Stephon Uribe Unavailable [phone] Jan Davis MD Unavailable Unavailable Jan Osorio MD Unavailable [phone] Allergies Active Allergy Reactions Criticality Noted Date Comments Sulfamethoxazole-Trimetho prim Rash Cephalexin Other - Describe In Comment Field Low 08/09/2016 erythema nodosum on shins. May consider retreat for other if needed. Erythromycin GI Upset Lisinopril Cough 02/03/2015 Spironolactone Nausea Only 03/25/2014 Medications Medication Sig Dispensed Refills Start Date End Date Status MULTIVITAMIN TAB take 1 tablet by oral route once daily with food 0 02/14/2007 Active Biotin 2,500 mcg tablet Patient states she is taking 8000 mcg daily as of 02/07/2012 0 07/25/2012 Active calcium carbonate (TUMS) 200 mg calcium (500 mg) chewable tablet Take 2 tablets by mouth 2 times daily with meals. 0 09/24/2013 Active Minoxidil 5 % foam Apply topically to affected area(s). 0 09/24/2013 Active simethicone chewable (GAS-X) 80 mg chewable tablet Take 1 tablet by mouth 3 times daily if needed for Flatulence. Max dose: 500 mg per 24 hrs 0 09/24/2013 Active b complex vitamins tablet Take 1 tablet by mouth once daily. 50 mg 0 10/26/2016 Active cholecalciferol (VITAMIN D-3) 400 unit tabletIndications: Vitamin D deficiency Take 2,000 units by mouth once daily. 0 10/08/2018 Active fluticasone (50 mcg per actuation) nasal solution (FLONASE)Indicatio ns:Cough INHALE 2 SPRAYS INTO BOTH NOSTRILS EVERY DAY 3 Bottle 2 10/13/2018 Active LORazepam (ATIVAN) 0.5 mg tabIndications:Mal absorption of fructose,Air swallowing,Other specified anxiety disorders Start with 1-2 tablets at onset of symptoms. May repeat 1-2 more tablets in 30 minutes if not improving. 60 tablet 1 06/29/2019 Active Graduated Compression StockingsIndicatio ns:Varicose veins of both lower extremities with pain 20-30 mm/Hg thigh high compression stockings - Venous insufficiency 8 Packet 08/21/2021 Active famotidine (PEPCID) 20 mg tabletIndications: Chronic GERD TAKE 1 TABLET(20 MG) BY MOUTH TWICE DAILY 180 Tablet 2 10/19/2023 Active losartan (COZAAR) 50 mg tabletIndications: Essential hypertension Take 1 Tablet (50 mg) by mouth once daily. 90 Tablet 3 10/26/2023 Active metoprolol succinate (TOPROL XL) 25 mg Sustained-Release tabletIndications: Essential hypertension TAKE 1 TABLET(25 MG) BY MOUTH EVERY DAY 90 Tablet 3 10/26/2023 Active pantoprazole (PROTONIX) 40 mg delayed-release tabletIndications: Gastroesophageal reflux disease without esophagitis Take 1 Tablet (40 mg) by mouth once daily before a meal. 90 Tablet 3 10/26/2023 Active sertraline (ZOLOFT) 50 mg tabletIndications: Other mixed anxiety disorders Take 1 Tablet (50 mg) by mouth once daily. 90 Tablet 3 10/26/2023 Active busPIRone (BUSPAR) 10 mg tabletIndications: Other mixed anxiety disorders Take 1 Tablet (10 mg) by mouth three times daily. 270 Tablet 3 10/26/2023 Active atorvastatin (LIPITOR) 10 mg tabletIndications: Essential hypertension Take 1 Tablet (10 mg) by mouth once daily with evening meal. 90 Tablet 3 10/26/2023 Active Active Problems Problem Noted Date Diagnosed Date COVID-19 virus infection 12/27/2022 Overview: December 2022: Positive home test with symptoms. Paxlovid was prescribed. 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 Osteoarthritis of left knee 03/26/2013 Other mixed anxiety disorders 07/25/2012 Air swallowing 07/25/2012 Essential hypertension 03/31/2011 Hyperlipidemia LDL goal < 130 03/31/2011 GERD (gastroesophageal reflux disease) 0 Overview: EGD 01/2012 Reactive gastropathy Screen for colon cancer 09/17/2009 Overview: Colonoscopy 09/2009 normal repeat in 10 years Osteopenia 08/13/2008 Resolved Problems Problem Noted Date Diagnosed Date Resolved Date Other specified disorders of carbohydrate metabolism 10/21/2021 10/25/2022 Fructose intolerance 08/14/2013 013 Gluten-sensitive enteropathy 03/31/2011 06/21/2012 Irritable bowel syndrome 05/02/2009 Unspecified essential hypertension 03/31/2011 Encounters Date Type Department Care Team Description 01/30/2024 Orders Only [facility] Scanner 1 scan: (1-Ord) [facility], XR HAND RT MIN 3V, 01/30/2024 from Last 3 Months Immunizations Name Administration Dates Next Due AMB Influenza, IIV3 (Age >=3 years)(Flu Clinic Only) 08/09/2011 COVID-19 vaccine (Pfizer-Bio NTech 30mcg/0.3mL) 12YO+ BIVALENT PF, MDV 07/28/2022 COVID-19 vaccine (Pfizer-Bio NTech 30mcg/0.3mL) 12YO+ [place]-[facility]CROSE PF, MDV 01/16/2022 COVID-19 vaccine (Pfizer-Bio NTech 30mcg/0.3mL) PF, MDV 07/10/2021,12/09/2020,11/18/2020 COVID-19 vaccine Comirnaty (GroupMe 30mcg/0.3mL) 12YO+ [id number] Formula PF, SDV, PFS 07/11/2023 Influenza A (H1N1), Inactiva rosalinda (Age >=3 Years) 10/02/2009 Influenza, High-dose Inactivated 018,07/11/2017,07/11/2017,06/30,07/18/2015,07/05/2014 Influenza, High-dose Quadriv alent Inactivated 07/11/2023,07/16/2020 Influenza, IIV3 (Age >=3 years) 07/17/20 13,06/21/2012,06/26/2010,07/07,07/18/2008 Influenza, IIV4 10/02/2009 Influenza, Inactivated AIIV4 (Age 65+ Years) Preserv Free 07/28/2022,07/10/2021 Influenza, Inactivated IIV3 (Age 65+ Years) Preserv Free 07/11/2019 Pneumococcal Poly,23-Valent (Pneumovax) 06/21/2012 Pneumococcal conj 13-Valent (Prevnar 13) 11/20/2014 RSV, Bivalent Vaccine Recons tituted (Abrysvo 120MCG/0.5mL) 07/11/2023 Td (Age >=7 Years) 08/21/2022,07/05/2006 Tdap 09/24/2013 Zoster (Shingrix-RZV, recombinant) 08/18/2020, Zoster (Zostavax-ZVL, live) 06/29/2012 Family History Medical History Relation Name Comments Cancer-prostate Brother Colon polyps Brother Thyroid Disease Daughter Heart Disease Father age 65 Psychiatric illness Father anxiety Unknown Father age 89 Cancer Maternal Grandmother colon Osteoporosis Mother Other Mother alzheimers, d age 89 Psychiatric illness Mother anxiety Cancer-breast No Family History Relation Name Status Comments Brother Daughter Father Maternal Grandmother Mother Social History Tobacco Use Types Packs/Day Years Used Date Smoking Tobacco: Never Smokeless Tobacco: Never Tobacco Cessation:Counseling Given: No Alcohol Use Standard Drinks/Week Comments Not Currently 0 (1 standard drink = 0.6 oz pur e alcohol) Rarely PHQ-2 Answer Date Recorded PHQ-2 TOTAL SCORE 0 10/26/2023 Social Connections Answer Date Recorded Frequency of Communication with Friends and Fami ly Not on file 06/23/2023 Financial Resource Strain Answer Date R ecorded Difficulty of Paying Living Expenses 3 06/11/2022 Difficulty of Paying Living Expenses Not on file 06/11/2022 Food Insecurity Answer Date Recorded Worried About Running Out of Food in the Last Ye ar 1 06/11/2022 Transportation Needs Answer Date Record ed Lack of Transportation (Medical) 1 06/11/2022 Housing Stability Answer Date Recorded Unable to Pay for Housing in the Last Year 1 06/11/2022 Sex and Gender Information Value Date Recorded Sex Assigned at Not on file Gender Identity Not on file Sexual Orientation Not on file Obstetrics History Para Term AB IAB SAB Ectopic Multiple Livin g Live Births 2 2 2 Date Outcome GA Total Labor Labor/2nd/3rd Weight Sex Delivery Anes PTL Tammi A1 A5 Name Cl in Para Para Last Filed Vital Signs Vital Sign Reading Time Taken Comments Blood Pressure 129/85 10/26/2023 8:15 AM MARKETING SALES CONSULTANT Pulse 81 10/26/2023 8:15 AM MARKETING SALES CONSULTANT Temperature 36.6 ??C (97.8 ??F) 10/26/2023 8:15 AM CS T Respiratory Rate 16 05/31/2020 12:38 PM CDT Oxygen Saturation 95% 10/26/2023 8:15 AM MARKETING SALES CONSULTANT Inhaled Oxygen Concentration - - Weight 97.5 kg (215 lb) 10/26/2023 8:15 AM MARKETING SALES CONSULTANT Height 157.5 cm (5' 2) 10/26/2023 8:15 AM MARKETING SALES CONSULTANT Body Mass Index 39.32 10/26/2023 8:15 AM MARKETING SALES CONSULTANT Plan of Treatment Health Maintenance Due Date Last Done Comments Influenza for age 65+ 06/10/2024 07/11/2023 , 07/28/2022, 07/10/2021, Additional history exists BMI (ht and wt on same day) for age 18+ 10/26/2024 10/26/2023, 10/25/2022, 10/21/2021, Additional history exists Depression screening for age 12+ 10/26/2024 10/26/2023, 10/26/2023, 10/25/2022, Additional history exists Medicare Wellness for age 65+ 10/26/2024, 10/25/2022, 10/21/2021, Additional history exists Tetanus booster 08/21/2032 08/21/2022, 09/09, 07/05/2006 Hepatitis C screening for ag e 18-79 Completed 09/24/2013 Tdap Completed 09/24/2013 Pneumococcal series for age 65+ Completed 5, 06/21/2012 Zoster (shingles) series for age 50+ Completed 08/18/2020, 06/19/2020, 06/29/2012 COVID-19 vaccine series Completed 07/11/20 23, 07/28/2022, 01/16/2022, Additional history exists DEXA/DXA scan for age 65+ Completed 2023, 10/06/2018, 09/30/2015, Additional history exists Procedures Procedure Name Priority Date/Time Associated Diagnosis Comments SCAN-RADIOLOGY REPORT 01/30/2024 12:00 AM CDT XR DXA BONE DENSITY 2 SITES AXIAL Routine 10/26/2023 10:18 AM MARKETING SALES CONSULTANT Post-menopausal ANTI HCV Routine 09/24/2013 12:19 PM MARKETING SALES CONSULTANT Need for hepatitis C screening test from Last 3 Months or Most Recently Relevant to Health Maintenance Results * SCAN-RADIOLOGY REPORT (01/30/2024 12:00 AM CDT) Anatomical Region Laterality Modality Other Scanner OTHER * (ABNORMAL) XR DXA BONE DENSITY 2 SITES AXIAL (10/26/2023 10:18 AM MARKETING SALES CONSULTANT) Anatomical Region Laterality Modality Spine, HIPS, HIPL, HIPR Other Impressions 10/26/2023 4:50 PM MARKETING SALES CONSULTANT Osteopenia. RECOMMENDATIONS: The National Osteoporosis Foundation recommends pharmacologic treatment for patients with T-scores of -2.5 or less, patients with prior history of fragility fractures, or patients with 10-year probability of greater than 3% at hips or greater than 20% of suffering major osteoporotic fractures. Recommend continued optimization of calcium and vitamin D intake through dietary means and/or supplementation and regular exercise. Repeat scan recommended in 3-5 years. Isabel Fox PA-C [facility] 10/26/2023 Narrative 10/26/2023 4:50 PM MARKETING SALES CONSULTANT For Patients: Results are automatically released to your [facility] account once available, in compliance with federal regulations. This means that you may see your results before your provider has had a chance to review them. Please allow 2-3 business days for your provider to comment on the results. XR DXA Bone Mineral Density (BMD) EXAM LOCATION: [facility] [address] [id number] PATIENT NAME: Tiara Juarez DATE OF : 1945 EXAM DATE: 10/26/2023 REQUESTING PROVIDER: Valerie Rivera, DO GENDER AT : female HEIGHT: 5' 2 (10/26/2023) WEIGHT: ??215 lb (10/26/2023) MENOPAUSAL STATUS: Postmenopausal RACE/ETHNICITY: White RISK FACTORS: Family History of Osteoporosis and White Race CURRENT MEDICATION FOR BONE LOSS: NONE INDICATION: Post-Menopause COMPARISON DATE(S): 2018 DXA scans are compared to prior studies for a patient only when the two (or more) studies were performed on the same scanner. It is not possible to compare data generated on one scanner to data from another because there are not standards in DXA equipment. This applies even if the two scanners are made by the same club manager. PROCEDURE: Dual-energy x-ray absorptiometry performed with routine technique. Reporting is completed in the form of a T-score. The T-score represents the standard deviation from peak bone mass based on young healthy adult. A Z-score is used for diagnosis in premenopausal women, and for men under the age of 50. FINDINGS: RESULT LUMBAR SPINE L1 - L4 BMD: 1.027 g/cm2 T-Score: - 1.3 Z-Score: - 0.6 Change from prior in 2018: ??Decrease 0.5%. RESULTS FEMUR Left femoral neck BMD: 0.811 g/cm2 T-Score: - 1.6 Z-Score: - 0.4 Change from prior in 2018: ??Increase 5.5%. Right femoral neck BMD: 0.776 g/cm2 T-Score: - 1.9 Z-Score: - 0.6 Change from prior in 2018: ??Increase 5.4%. Left hip BMD: 0.944 g/cm2 T-Score: - 0.5 Z-Score: + 0.5 Change from prior in 2018: ??Increase 4.8%. Right hip BMD: 0.910 g/cm2 T-Score: - 0.8 Z-Score: + 0.3 Change from prior in 2018: ??Decrease 0.5%. WHO criteria: Normal: T-score at or above -1 SD Osteopenia: T-score between -1.1 and -2.4 SD Osteoporosis: T-score at or below -2.5 SD FRAX RISK CALCULATION (USED FOR OSTEOPENIA ONLY): 10-year probability of major osteoporotic fracture: 12.0%. 10-year probability of hip fracture: 2.8%. Valerie Rivera DO DEXA * ANTI HCV [[id number]] (09/24/2013 12:19 PM MARKETING SALES CONSULTANT) ANTI HCV Non-reacti ve [facility] Blood specimen (specimen) BLOOD SPECIMEN / Unknown 09/24/2013 12:19 PM MARKETING SALES CONSULTANT 09/24/2013 12:11 PM MARKETING SALES CONSULTANT Valerie Rivera DO SEND OUTS [facility] [place]NAL ZIP [id number] [place] [phone] from Last 3 Months or Most Recently Relevant to Health Maintenance Advance Directives Documents on File Type Date Recorded Patient Remediation Technician Expl anation Healthcare Directive 10/17/2020 3:50 PM AMM ENDMENT TO HEALTHCARE DIRECTIVE, [facility], 11/22/19 Healthcare Directive 09/20/2007 [place] [facility], [facility], 09/20/07 Care Teams Training Specialist Relationship Specialty Start Date End Date Valerie Rivera DO [address] [place] [address] PCP - General 05/26/09 Stephon Uribe [address] [place] [id number] Sap Bw Bi Developer 09/24/13 [place] [id number] [address] Ophthalmology Surgery 09/24/13 [place] [id number] [address] Orthopedics Surgery - Orthopedics 07/23/14
== END 2024-03-11 06:41 | disposition home or self-care (01) ==
LOC: ED 06:36
PROVIDERS: Emergency Provider Internal Medicine; PCP Family Medicine
DX: S22.31XA Fracture of one rib, right side, initial encounter for closed fracture (principal)
CPT/HCPCS: 71250; 73560; 99283; 99285

== ENCOUNTER 2024-03-12 12:48 | Emergency (ER) | payer MEDICARE, SELFPAY ==
[2024-03-12 12:50] VITALS: BP 155/81; PULSE 70; RESP 18; TEMP 36.5; O2SAT 96; BMI 38.8
--- NOTE | 2024-03-12 12:59 | ED_ITS ---
HPI - General Adult General Chief complaint: Shoulder Injury/Pain Stated complaint: Cracked rib, r shoulder blade pain Time Seen by Provider: 03/12/24 12:59 History of Present Illness HPI narrative: fell 2 days ago . evelauated in ED, found a couple of ribs that were cracked on right side today c/o right shoulder blade pain. told to return for new symptoms 78-year-old woman returning to the emergency department with concern of right shoulder area pain. Ultimately it appears to be in the periscapular margin on the inferior aspect and then toward the spine. Seen yesterday in the emergency department suspected to have a lateral 4th rib fracture, nondisplaced. Fell 2 days ago landing with her anterior upper right chest on a cat litter box. Pain she is having now though is in the upper back is noted. She presents as she was told that if had any new symptoms should be seen. Discomfort is nonradiating. No pain with movement of her neck. Not exactly pleuritic. She notes herself to have a history of gas in her chest that she has to expel. Does not note a hi story of pneumomediastinum or pneumothorax. Related Data Home Medications ?Medication ?Instructions ?Recorded ?Confirmed albuterol sulfate 90 mcg/actuation 2 inh inhalation Q6H PRN 07/13/22 01/30/24 aerosol inhaler atorvastatin 10 mg tablet 10 mg PO HS 07/13/22 01/30/24 biotin 800 mcg tablet 800 mcg PO DAILY 07/13/22 01/30/24 buspirone 10 mg tablet 10 mg PO TID 07/13/22 01/30/24 calcium carbonate (Tums) 400 mg PO BID 07/13/22 01/30/24 cholecalciferol (vitamin D3) 10 20 mcg PO DAILY 07/13/22 01/30/24 mcg (400 unit) capsule famotidine 20 mg tablet 20 mg PO BID 07/13/22 01/30/24 fluticasone propionate 50 2 spray intranasal DAILY PRN 07/13/22 01/30/24 mcg/actuation nasal spray,suspension (24 Hour Allergy Relief) lorazepam 0.5 mg tablet (Ativan) 0.5 mg PO DAILY PRN 07/13/22 01/30/24 losartan 50 mg tablet 50 mg PO DAILY 07/13/22 01/30/24 metoprolol succinate 25 mg 25 mg PO DAILY 10/04/22 04/22/24 tablet,extended release 24 hr (Toprol XL) minoxidil 5 % topical foam 1 ea topical HS 07/13/22 01/30/24 (Daylogic Minoxidil) multivitamin (Daily Multi-Vitamin 1 tab PO DAILY 07/13/22 01/30/24 tablet) pantoprazole 40 mg tablet,delayed 40 mg PO DAILY 07/13/22 01/30/24 release sertraline 50 mg tablet 50 mg PO DAILY 07/13/22 01/30/24 simethicone 80 mg chewable tablet 80 mg PO TID PRN 07/13/22 01/30/24 (Gas Relief 80 (simethicone)) vitamin B complex (B 1 tab PO DAILY 07/13/22 01/30/24 Complex-Vitamin B12 tablet) Allergies Allergy/AdvReac Type Severity Reaction Status Date / Time erythromycin base Allergy Mild Verified 01/30/24 11:25 spironolactone Allergy Mild Verified 01/30/24 11:25 Sulfa (Sulfonamide Allergy Mild Verified 01/30/24 11:25 Antibiotics) cephalexin Allergy Unknown Verified 01/30/24 11:25 lisinopril Allergy Unknown Verified 01/30/24 11:25 sulfamethoxazole Allergy Unknown Verified 01/30/24 11:25 [From Bactrim] trimethoprim [From Bactrim] Allergy Unknown Verified 01/30/24 11:25 Review of Systems Status of ROS: Reports: 6 or more systems reviewed and unremarkable except as noted in History and below [facility] Medical History Cat bite of face ?S01.85XA - Open bite of other part of head, initial encounter (ICD-10) ?W55.01XA - Bitten by cat, initial encounter (ICD-10) Health care directive on file ?Z78.9 - Other specified health status (ICD-10) Osteoarthritis ?M19.90 - Unspecified osteoarthritis, unspecified site (ICD-10) Hyperlipidemia ?E78.5 - Hyperlipidemia, unspecified (ICD-10) Degenerative disc disease Osteopenia ?M85.80 - Other specified disorders of bone density and structure, unspecified site (ICD-10) GERD (gastroesophageal reflux disease) ?K21.9 - Gastro-esophageal reflux disease without esophagitis (ICD-10) Hypertension ?I10 - Essential (primary) hypertension (ICD-10) Surgical History H/O hand surgery (12/06/06) ?Z98.890 - Other specified postprocedural states (ICD-10) History of section ?Z98.891 - History of uterine scar from previous surgery (ICD-10) History of arthroscopy of left shoulder (07/22/06) ?Z98.890 - Other specified postprocedural states (ICD-10) History of total left knee replacement ?Z96.652 - Presence of left artificial knee joint (ICD-10) Family History Father Myocardial infarction Mother Alzheimers disease Brother Anxiety Myocardial infarction Sister No problems noted. Social History Smoking Status: Never smoker Do you use any of these nicotine containing products: None Second hand tobacco smoke exposure: No How often do you have a drink containing alcohol: monthly or less How many standard drinks containing alcohol do you have on a typical day: 1 or 2 How often do you have six or more drinks on one occasion: Never AUDIT-C Alcohol total score: 1 Non-prescribed substance use: denies use Caffeine: Yes (occ pop, chocolate) Are you using contraception or practicing any form of control: No service: No Exam Narrative: Exam Narrative: Pleasant. Appears a little comfortable. Splinting her breathing a little bit at times. Bruising on upper right chest. Generally sore in the area. And particularly in the right upper back musculature. No crepitus in the supraclavicular area. Lungs appear to be clear with breath sounds throughout. Is not having significant limitation on range of motion at the shoulder. Const: Vital Signs, click to edit/add: Vital Signs - 24 hr 03/12/24 12:50 Temperature 97.7 F Pulse Rate [Right Pulse Oximeter] 70 Respiratory Rate 18 Blood Pressure [Ri ght Upper Arm] 155/81 H Pulse Oximetry 96 Oxygen Delivery Me thod Room Air Documenting provider has reviewed patient's vital signs: yes Course Vital Signs Vital signs: Initial Vital Signs Temperature 97.7 F 03/12/24 12:50 Temperature Source Temporal Artery Scan 03/12/24 12:50 Pulse Rate 70 03/12/24 12:50 Respiratory Rate 18 03/12/24 12:50 Blood Pressure 155/81 H 03/12/24 12:50 Blood Pressure Mean 105 03/12/24 12:50 Blood Pressure Position Sitting 03/12/24 12:50 Pulse Oximetry 96 03/12/24 12:50 Oxygen Delivery Method Room Air 03/12/24 12:50 Vital Signs Temperature 97.7 F 03/12/24 12:50 Pulse Rate 70 03/12/24 12:50 Respiratory Rate 18 03/12/24 12:50 Blood Pressure 155/81 H 03/12/24 12:50 Pulse Oximetry 96 03/12/24 12:50 Oxygen Delivery Method Room Air 03/12/24 12:50 Temperature 97.7 F 03/12/24 12:50 Pulse Rate 70 03/12/24 12:50 Respiratory Rate 18 03/12/24 12:50 Blood Pressure 155/81 H 03/12/24 12:50 Pulse Oximetry 96 03/12/24 12:50 Oxygen Delivery Method Room Air 03/12/24 12:50 Medications Administered Medications: Discontinued Medications Generic Name Dose Route Start Last Admin Trade Name Freq PRN Reason Stop Dose Admin Lidocaine 1 patch 03/12/24 13:22 03/12/24 13:32 Lidocaine 5% Patch TRANSDERMA 03/12/24 13:23 1 patch ONCE ONE Administration Protocol Medical Decision Making MDM Narrative Medical decision making narrative: With escalation in symptoms might be with looking for other injury. Does not appear to involve shoulder joint itself. May be evolving pneumothorax. Hemopneumothorax. Other pleural effusion, atelectasis and secondary pneumonia. Will do chest x-ray with this in mind. Chest x-ray by my read without acute abnormality. Unable to visualize fracture. Radiology over-read as below INDICATION: PREVIOUS CXR 07/29/2012. PT FELL 2 DAYS AGO AND CRACKED RIBS AND IS NOW EXPERIENCING SHOULDER PAIN. Reason For Exam: Right upper back pain after fall, ?pneumothorax, ant rib fx (Sic) COMPARISON: Chest CT 03/11/2024 TECHNIQUE: 1 view. FINDINGS: Lordotic position. Medical Devices: None. Lung Volumes: Adequate inspiration. No significant atelectasis. Lungs: Clear lungs. Pleura and Pleural spaces: No significant pleural effusion. No pneumothorax. Mediastinum: Normal cardiomediastinal silhouette. Bony Thorax and Soft Tissues: No significant incidental findings. Deformity of the right anterolateral 4th rib demonstrated on the prior chest CT of 03/11/2024 is not appreciated on this radiologic exam. Widening of the left acromioclavicular joint consistent with osteolysis of the lateral left clavicle. IMPRESSION: No radiographic findings to explain shoulder/right upper back pain on this single view chest examination. No right pneumothorax. Consider dedicated radiographs of the right shoulder if clinically indicated. Did place lidocaine patch. Also given Arnoldo wrap with some improvement in symptoms en sandra of available rib binder. See patient discharge plan for further discussion Medical Records Medical records reviewed: Yes I reviewed the patient's medical records Discharge Plan Discharge Clinical Impression: Chest wall pain, Muscle tension pain Patient Disposition: Home, Self-Care Condition: Improved Additional Instructions: Can use this Arnoldo wrap if helpful for pain. If you are using this, be sure to take a few deep breaths a couple of times daily to make sure your expanding the lungs. Temporarily and maybe with a little food can take up to 600 mg of ibuprofen per dose or otherwise up to 1000 mg of acetaminophen per dose. Instead of ibuprofen you might try up to 500 mg of naproxen 2 times daily. See handout also for stretches/strengthening exercises you might try for your upper back. Prescriptions: No Action metoprolol succinate [Toprol XL] 25 mg tablet extended release 24 hr 25 mg PO DAILY pantoprazole 40 mg tablet,delayed release (DR/EC) 40 mg PO DAILY buspirone 10 mg tablet 10 mg PO TID famotidine 20 mg tablet 20 mg PO BID atorvastatin 10 mg tablet 10 mg PO HS losartan 50 mg tablet 50 mg PO DAILY sertraline 50 mg tablet 50 mg PO DAILY albuterol sulfate 90 mcg/actuation HFA aerosol inhaler 2 inh inhalation Q6H PRN vitamin B complex [B Complex-Vitamin B12] Tablet 1 tab PO DAILY biotin 800 mcg tablet 800 mcg PO DAILY calcium carbonate [Tums] 200 mg calcium (500 mg) tablet,chewable 400 mg PO BID cholecalciferol (vitamin D3) 10 mcg (400 unit) capsule 20 mcg PO DAILY fluticasone propionate [24 Hour Allergy Relief] 50 mcg/actuation spray,suspension 2 spray intranasal DAILY PRN Rx Instructions: administer into each nostril lorazepam [Ativan] 0.5 mg tablet 0.5 mg PO DAILY PRN multivitamin [Daily Multi-Vitamin] Tablet 1 tab PO DAILY minoxidil [Daylogic Minoxidil] 5 % foam 1 ea topical HS simethicone [Gas Relief 80 (simethicone)] 80 mg tablet,chewable 80 mg PO TID PRN Follow Up/Referrals: Valerie Rivera DO [Primary Care Provider] - Stand Alone Forms: [facility] Info Instructions
--- NOTE | 2024-03-12 13:22 | CRLHL7_ITS ---
For Patients: As a result of the Century Cures Act, medical imaging exams and procedure reports are released immediately into your electronic medical record. You may view this report before your referring provider. If you have questions, please contact your health care provider. INDICATION: PREVIOUS CXR 07/29/2012. PT FELL 2 DAYS AGO AND CRACKED RIBS AND IS NOW EXPERIENCING SHOULDER PAIN. Reason For Exam: Right upper back pain after fall, ?pneumothorax, ant rib fx (Sic) COMPARISON: Chest CT 03/11/2024 TECHNIQUE: 1 view. FINDINGS: Lordotic position. Medical Devices: None. Lung Volumes: Adequate inspiration. No significant atelectasis. Lungs: Clear lungs. Pleura and Pleural spaces: No significant pleural effusion. No pneumothorax. Mediastinum: Normal cardiomediastinal silhouette. Bony Thorax and Soft Tissues: No significant incidental findings. Deformity of the right anterolateral 4th rib demonstrated on the prior chest CT of 03/11/2024 is not appreciated on this radiologic exam. Widening of the left acromioclavicular joint consistent with osteolysis of the lateral left clavicle. IMPRESSION: No radiographic findings to explain shoulder/right upper back pain on this single view chest examination. No right pneumothorax. Consider dedicated radiographs of the right shoulder if clinically indicated. Deformity of the right anterolateral 4th rib demonstrated on the recent prior chest CT of 03/11/2024 is not appreciated on this radiologic exam. Dictated by David Ayala MD @ 03/12/2024 2:47:15 PM (Electronically Signed)
[2024-03-12] MEDS: LIDOCAINE 5% PATCH 1 PATCH TRANSDERMA (13:32)
--- OUTSIDE RECORDS SUMMARY | 2024-03-12 14:17 | XMS_ITS | Clinical Summary ---
Author Organization [employer] [facility] Address [place], [place] [address] Care Team Providers Care Post Anesthesia Room Nurse Name Role Phone Valerie Rivera DO Primary Care Provider Stephon Uribe Unavailable [phone] Jan Davis MD Unavailable Unavailable Jan Osorio MD Unavailable [phone] Allergies Active Allergy Reactions Criticality Noted Date [...] Encounters Date Type Department Care Team Description 03/12/2024 Nurse Triage [facility] [address] [place] [address] Valerie Rivera DO Chest Pain 01/30/2024 Orders Only [facility] Scanner 1 scan: (1-Ord) [facility], XR HAND RT MIN 3V, 01/30/2024 from Last 3 Months Immunizations Name Administration Dates Next Due AMB Influenza, IIV3 (Age >=3 years)(Flu Clinic Only) 08/09/2011 COVID-19 vaccine (Pfizer-Bio NTech 30mcg/0.3mL) 12YO+ BIVALENT PF, MDV 07/28/2022 COVID-19 vaccine (Pfizer-Bio NTech 30mcg/0.3mL) 12YO+ [place] PF, MDV 01/16/2022 COVID-19 vaccine (Pfizer-Bio NTech 30mcg/0.3mL) PF, MDV 07/10/2021,12/09/2020,11/18/2020 COVID-19 vaccine Comirnaty ([place] PERL 30mcg/0.3mL) 12YO+ [id number] Formula PF, SDV, PFS 07/11/2023 Influenza A [...] Comments Blood Pressure 129/85 10/26/2023 8:15 AM GRE[employer] END DEPARTMENT SUPERVISOR Pulse 81 10/26/2023 8:15 AM [employer] DEPARTMENT SUPERVISOR Temperature 36.6 ??C (97.8 ??F) 10/26/2023 8:15 AM CS T Respiratory Rate 16 05/31/2020 12:38 PM CDT Oxygen Saturation 95% 10/26/2023 8:15 AM GRE[employer] DEPARTMENT SUPERVISOR Inhaled Oxygen Concentration - - Weight 97.5 kg (215 lb) 10/26/2023 8:15 AM GRE[employer] DEPARTMENT SUPERVISOR Height 157.5 cm (5' 2) 10/26/2023 8:15 AM GRE[employer] END DEPARTMENT SUPERVISOR Body Mass Index 39.32 10/26/2023 8:15 AM GRE[employer] END DEPARTMENT SUPERVISOR Plan of Treatment Upcoming Encounters Date Type Department Care Team (Late st Contact Info) Description 03/14/2024 3:00 PM CDT Office Visit [facility] [address] [facility] [place] [address] Max Monroy, DO [address] [facility] [place] [address] [address] Health Maintenance Due Date Last Done Comments [...] 2 SITES AXIAL Routine 10/26/2023 10:18 AM GRE[employer] DEPARTMENT SUPERVISOR Post-menopausal ANTI HCV Routine 09/24/2013 12:19 PM [employer] END DEPARTMENT SUPERVISOR Need for hepatitis C screening test from Last 3 Months or Most Recently Relevant to Health Maintenance Results * SCAN-RADIOLOGY REPORT (01/30/2024 12:00 AM CDT) Anatomical Region Laterality Modality Other Scanner OTHER * (ABNORMAL) XR DXA BONE DENSITY 2 SITES AXIAL (10/26/2023 10:18 AM GREEN END DEPARTMENT SUPERVISOR) Anatomical Region Laterality Modality Spine, HIPS, HIPL, HIPR Other Impressions 10/26/2023 4:50 PM GREEN END DEPARTMENT SUPERVISOR Osteopenia. RECOMMENDATIONS: The National Osteoporosis Foundation recommends [...] recommended in 3-5 years. Isabel Fox PA-C [facility] 10/26/2023 Narrative 10/26/2023 4:50 PM GREEN END DEPARTMENT SUPERVISOR For Patients: Results are automatically released to your [facility] ([employer]) account once available, in compliance with federal regulations. This means that you may see your results before your provider has had a chance to review them. Please allow 2-3 business days for your provider to comment on the results. XR DXA Bone Mineral Density (BMD) EXAM LOCATION: [address] [address] PATIENT NAME: Tiara Juarez DATE OF : 1945 EXAM DATE: 10/26/2023 REQUESTING PROVIDER: Valerie Rivera, DO GENDER AT : female HEIGHT: 5' 2 (10/26/2023) WEIGHT: ??215 lb (10/26/2023) MENOPAUSAL STATUS: Postmenopausal RACE/ETHNICITY: White RISK FACTORS: Family History of Osteoporosis and White Race CURRENT MEDICATION FOR BONE LOSS: NONE INDICATION: Post-Menopause COMPARISON DATE(S): 2017 DXA scans are compared to prior studies for a patient only when the two (or more) studies were performed on the same scanner. It is not possible to compare data generated on one scanner to data from another because there are not standards in DXA equipment. This applies even if the two scanners are made by the same automotive light mechanic. PROCEDURE: Dual-energy x-ray absorptiometry performed with routine [...] Valerie Rivera DO DEXA * ANTI HCV [14100.2] (09/24/2013 12:19 PM GREEN END DEPARTMENT SUPERVISOR) ANTI HCV Non-reacti ve [facility] Blood specimen (specimen) BLOOD SPECIMEN / Unknown 09/24/2013 12:19 PM GREEN END DEPARTMENT SUPERVISOR 09/24/2013 12:11 PM GREEN END DEPARTMENT SUPERVISOR Valerie Rivera DO SEND OUTS [facility] INTERNAL ZIP [id number] [place], [place] [id number] from Last 3 Months or Most Recently Relevant to Health Maintenance Advance Directives Documents on File Type Date Recorded Patient Technical Account Manager Expl anation Healthcare Directive 10/17/2020 3:50 PM AMM ENDMENT TO HEALTHCARE DIRECTIVE, [facility], 11/22/19 Healthcare Directive 09/20/2007 GIFTY GUARDADO HEALTHCARE DIRECTIVE, [facility], 09/20/07 Care Teams Post Anesthesia Room Nurse Relationship Specialty Start Date End Date [place]erie [place] [address] PCP - General 05/26/09 Stephon Uribe [address] [place] [id number] Security Auditor 09/24/13 Jan Davis MD [address] [address] Ophthalmology Surgery 09/24/13 Jan Osorio MD [address] [address] Orthopedics Surgery - Orthopedics 07/23/14
== END 2024-03-12 15:10 | disposition home or self-care (01) ==
PROVIDERS: Emergency Provider Family Medicine; PCP Family Medicine
DX: R07.89 Other chest pain (principal); M79.18 Myalgia, other site
CPT/HCPCS: 71045; 99284; A9270